=== PATIENT | male | born 1970 | race Caucasian/White ===

== ENCOUNTER 2023-07-06 12:09 | Inpatient (IN) | payer BC ==
[~2023-07-06] VITALS: Ht 165.1 cm; Wt 48.1 kg
[~2023-07-06 12:09] MED LIST: AZIT250T12 PO; CALC-870 PO; LEVA0.635 IH; MAGN400T50 MT; MYCO250C PO; PANT40TA51 MT; PRED10TA PO; SULF1TAB48 PO; TACR0.5C PO; TACR1CAP MT; VALG450T15 PO
[2023-07-06] MEDS: SODIUM CHLORIDE 0.9% 1000ML BAG (SEPSIS BOLUS) IV ONE (12:43)
[2023-07-06 13:18] LABS: HEMATOCRIT. 33.2 % (42.0-52.0); HEMOGLOBIN. 11.1 g/dL (14.0-18.0); MEAN CORPUSCULAR HEMOGLOBIN 31.8 pg (28.0-32.0); MEAN CORPUSCULAR HGB CONC 33.4 g/dL (31.0-37.0); MEAN PLATELET VOLUME 9.1 fl (7.4-10.4); PLATELET 192 x1000/uL (130-400); RED BLOOD CELL COUNT 3.49 mill/uL (4.7-6.1); RED CELL DISTRIBUTION WIDTH 18.7 % (11.6-14.6); WHITE BLOOD COUNT 3.4 x1000/uL (4.5-11.0)
[2023-07-06 13:20] LABS: DIFFERENTIAL COMMENT 1
[2023-07-06] MEDS: ALBUTEROL (0.083%) 2.5MG/3ML NEB HHN STA (13:20)
[2023-07-06] MEDS: IPRATROPIUM BROMIDE (0.02%) 0.5MG/2.5ML NEB HHN STA (13:20)
[2023-07-06 13:21] VITALS: PULSE 127; RESP 23; O2SAT 100
[2023-07-06 13:27] LABS: ALANINE AMINOTRANSFERASE 10 IU/L (10-49); ALBUMIN 3.6 g/dL (3.2-4.8); ASPARTATE AMINOTRANSFERASE 27 IU/L (<34); BILIRUBIN TOTAL 0.6 mg/dL (0.1-1.0); CARBON DIOXIDE 27 mEq/L (21-32); CHLORIDE 100 mEq/L (98-107); CREATININE 1.2 mg/dL (0.6-1.3); PROTEIN TOTAL 5.8 g/dL (6.0-8.3); SODIUM 139 mEq/L (136-145); TROPONIN I HIGH SENSITIVITY 25 ng/L (3.0-53); UREA NITROGEN BLOOD 17 mg/dL (9-23)
[2023-07-06 13:30] LABS: INR 1.2; PROTHROMBIN TIME 13.4 sec (9.6-11.0)
[2023-07-06] MEDS ORDERED: ACETAMINOPHEN 325MG TABLET PO ONE (13:30)
[2023-07-06 13:37] LABS: GLUCOSE 110 mg/dL (70-105)
[2023-07-06 13:38] LABS: POTASSIUM 2.5 mEq/L (3.5-5.1)
[2023-07-06] MEDS: ACETAMINOPHEN 325MG TABLET PO ONE (14:09)
[2023-07-06 14:15] LABS: NUCLEATED RED BLOOD CELLS 1 /100 WBC
[2023-07-06 14:16] LABS: ANISOCYTOSIS 2+; PLATELET ESTIMATE NORMAL
[2023-07-06 15:10] LABS: TROPONIN I HIGH SENSITIVITY 40 ng/L (3.0-53)
[2023-07-06] MEDS: MEROPENEM 1G/100ML 100 ML IV SCH (15:22)
[2023-07-06] MEDS: NOREPINEPHRINE 8MG/250ML PMX 250 ML IV STA (15:58)
[2023-07-06] MEDS: POTASSIUM CHLORIDE 20MEQ TABLET SR PO NR (16:14)
[2023-07-06] MEDS: VANCOMYCIN 1G PREMIX 200 ML IV SCH (19:56)
[2023-07-06 20:40] LABS: TROPONIN I HIGH SENSITIVITY 37 ng/L (3.0-53)
[2023-07-07] MEDS: METHYLPREDNISOLONE SOD SUCC 40MG/ML (ACT-O-VIAL) IV SCH (07:00)
[2023-07-07] MEDS: FAMOTIDINE 20MG/2ML VIAL IV SCH (10:15)
[2023-07-07] MEDS: IPRATROPIUM/ALBUTEROL 0.5-3(2.5)MG/3ML NEB HHN SCH (14:15)
[2023-07-07 14:16] VITALS: PULSE 82; RESP 22; O2SAT 95
[2023-07-07] MEDS: ACETYLCYSTEINE 200MG/ML 20% VIAL 4ML INH SCH (15:21)
[2023-07-07 17:28] VITALS: BP 99/75; PULSE 96; RESP 28; TEMP 97.7
[2023-07-07 20:00] VITALS: PULSE 93; RESP 22; TEMP 98.4
[2023-07-08] VITALS (7 sets, daily range): BP systolic 112–122; BP diastolic 84–96; PULSE 83–93; RESP 17–22; TEMP 96.8–98
[2023-07-08] MEDS: TACROLIMUS 0.5 MG CAPSULE PO SCH (09:41)
[2023-07-08 13:09] LABS: HEMATOCRIT. 32.7 % (42.0-52.0); HEMOGLOBIN. 10.5 g/dL (14.0-18.0); MEAN CORPUSCULAR HEMOGLOBIN 30.6 pg (28.0-32.0); MEAN CORPUSCULAR HGB CONC 32.1 g/dL (31.0-37.0); MEAN CORPUSCULAR VOLUME 95.4 fL (80.0-94.0); MEAN PLATELET VOLUME 9.9 fl (7.4-10.4); PLATELET 144 x1000/uL (130-400); RED BLOOD CELL COUNT 3.42 mill/uL (4.7-6.1); RED CELL DISTRIBUTION WIDTH 19.4 % (11.6-14.6); WHITE BLOOD COUNT 10.3 x1000/uL (4.5-11.0)
[2023-07-08 13:17] LABS: DIFFERENTIAL COMMENT 1
[2023-07-08 14:04] LABS: CALCIUM 7.9 mg/dL (8.7-10.4); CARBON DIOXIDE 22 mEq/L (21-32); CHLORIDE 105 mEq/L (98-107); CREATININE 1.4 mg/dL (0.6-1.3); GLUCOSE 207 mg/dL (70-105); PHOSPHORUS 3.2 mg/dL (2.5-4.9); POTASSIUM 3.3 mEq/L (3.5-5.1); SODIUM 136 mEq/L (136-145); UREA NITROGEN BLOOD 31 mg/dL (9-23)
[2023-07-08] MEDS: LEVOFLOXACIN 750MG PREMIX 150 ML IV NR (14:31)
[2023-07-08 15:58] LABS: ALBUMIN 3.4 g/dL (3.2-4.8); PREALBUMIN < 5.0 mg/dl (10.0-40.0)
[2023-07-08] MEDS ORDERED: MAGNESIUM 2 G PREMIX 50 ML IV NR (16:00)
[2023-07-08] MEDS: POLYVINYL ALCOHOL OPHTH DROPS 15ML BOTHEYE PRN (17:29)
[2023-07-08] MEDS: MAGNESIUM 2 G PREMIX 50 ML IV NR (17:30)
[2023-07-08] MEDS: POTASSIUM CHLORIDE 20MEQ TABLET SR PO NR (17:41)
[2023-07-08 20:40] LABS: PLATELET ESTIMATE NORMAL
[2023-07-08] MEDS ORDERED: VORICONAZOLE 50MG TABLET PO SCH (23:30)
[2023-07-09] VITALS (7 sets, daily range): BP systolic 117–127; BP diastolic 87–101; PULSE 72–87; RESP 16–28; TEMP 97.4–98.9
[2023-07-09] MEDS ORDERED: ONDANSETRON HCL 4MG TABLET PO PRN (01:15)
[2023-07-09] MEDS ORDERED: DEXT 5% IV SCH (01:30)
[2023-07-09] MEDS ORDERED: WATER IV SCH (01:30)
[2023-07-09] MEDS ORDERED: AMPHOTERICIN B LIPOSOME IV SCH (01:30)
[2023-07-09] MEDS: ONDANSETRON HCL 4MG/2ML INJ IV PRN (02:16)
[2023-07-09] MEDS: CEFEPIME 1GM/50ML 50 ML IV SCH (03:43)
[2023-07-09] MEDS: MICAFUNGIN 100 MG in SODIUM CHLORIDE 0.9% 100 ML IV SCH (03:43)
[2023-07-09 06:51] LABS: HEMATOCRIT. 29.9 % (42.0-52.0); HEMOGLOBIN. 10.1 g/dL (14.0-18.0); MEAN CORPUSCULAR HEMOGLOBIN 31.4 pg (28.0-32.0); MEAN CORPUSCULAR HGB CONC 33.6 g/dL (31.0-37.0); MEAN CORPUSCULAR VOLUME 93.3 fL (80.0-94.0); MEAN PLATELET VOLUME 10.1 fl (7.4-10.4); PLATELET 135 x1000/uL (130-400); RED BLOOD CELL COUNT 3.21 mill/uL (4.7-6.1); RED CELL DISTRIBUTION WIDTH 19.3 % (11.6-14.6); WHITE BLOOD COUNT 9.1 x1000/uL (4.5-11.0)
[2023-07-09 06:52] LABS: DIFFERENTIAL COMMENT 1
[2023-07-09 07:18] LABS: CARBON DIOXIDE 26 mEq/L (21-32); CHLORIDE 106 mEq/L (98-107); CREATININE 1.5 mg/dL (0.6-1.3); GLUCOSE 174 mg/dL (70-105); PHOSPHORUS 2.8 mg/dL (2.5-4.9); POTASSIUM 3.5 mEq/L (3.5-5.1); SODIUM 137 mEq/L (136-145); UREA NITROGEN BLOOD 44 mg/dL (9-23)
[2023-07-09] MEDS ORDERED: CEFEPIME HCL 1000MG VIAL IM SCH (09:00)
[2023-07-09] MEDS: MEROPENEM 1G/100ML 100 ML IV SCH (09:34)
[2023-07-09] MEDS: LEVOFLOXACIN 500MG PREMIX 100 ML IV SCH (11:05)
[2023-07-09 17:43] LABS: PLATELET ESTIMATE NORMAL
[2023-07-09] MEDS: DOXYCYCLINE HYCLATE 100MG CAPSULE PO SCH (18:16)
[2023-07-09] MEDS: SODIUM CHLORIDE 0.9% 1,000 ML IV SCH (19:34)
[2023-07-10] VITALS (8 sets, daily range): BP systolic 115–133; BP diastolic 90–101; PULSE 67–78; RESP 18–28; TEMP 97.6–98.4
[2023-07-11] VITALS: BP 133/93; PULSE 67; RESP 21; TEMP 97.8
[2023-07-11 04:00] VITALS: PULSE 62; RESP 13
[2023-07-11 08:00] VITALS: BP 126/96; PULSE 67; RESP 19; TEMP 97.6
[2023-07-11 12:00] VITALS: BP 121/91; PULSE 69; RESP 21; TEMP 98
[2023-07-11] MEDS: POLYETHYLENE GLYCOL 3350 (17GM) 1 DOSE PACK PO NR (13:01)
[2023-07-11 16:00] VITALS: BP 122/89; PULSE 67; RESP 21; TEMP 97.9
[2023-07-11 16:04] VITALS: BP 121/91; PULSE 69; TEMP 98; O2SAT 98
[2023-07-11] MEDS ORDERED: DOXY100T2 MT (18:27)
== END 2023-07-11 19:33 | disposition home health service (06) | DRG 871 ==
LOC: ER 12:09 → EDBEDREQSVC 19:37 → EDBEDREQTM 19:37 → EDBEDREQ 19:38 → EDBEDREQSVC 07-07 04:33 → 3WST 07-07 20:32
PROVIDERS: ADMIT Internal Medicine; ATTEND Internal Medicine
DX: A41.9 Sepsis, unspecified organism (principal); J18.9 Pneumonia, unspecified organism; J96.20 Acute and chronic respiratory failure, unspecified whether with hypoxia or hypercapnia; L89.153 Pressure ulcer of sacral region, stage 3; D84.9 Immunodeficiency, unspecified; N17.9 Acute kidney failure, unspecified; D64.9 Anemia, unspecified; E87.6 Hypokalemia; Z20.822 Contact with and (suspected) exposure to COVID-19; J45.909 Unspecified asthma, uncomplicated; K59.00 Constipation, unspecified; Z86.16 Personal history of COVID-19; Z88.0 Allergy status to penicillin; Z88.6 Allergy status to analgesic agent; Z90.49 Acquired absence of other specified parts of digestive tract; Z79.899 Other long term (current) drug therapy
CPT/HCPCS: 36415; 71045; 71250; 74018; 74177; 80048; 80053; 80197; 82040; 83735; 83880; 84100; 84134; 84145; 84484; 85025; 87426; 87804; 93005; 94640; 99291; J0289; J0692; J1956; J2185; J2248; J2405; J2920; J3370; J3475; J3490; J7030; J7050; J7060; J7507; J7608

== ENCOUNTER 2023-07-15 17:53 | Inpatient (IN) | payer BC ==
[~2023-07-15] VITALS: Ht 172.7 cm; Wt 63.1 kg
[~2023-07-15 17:53] MED LIST changes: +DOXY100T2 MT
[2023-07-15 20:11] LABS: HEMATOCRIT. 31.2 % (42.0-52.0); HEMOGLOBIN. 10.5 g/dL (14.0-18.0); MEAN CORPUSCULAR HEMOGLOBIN 31.4 pg (28.0-32.0); MEAN CORPUSCULAR HGB CONC 33.5 g/dL (31.0-37.0); MEAN CORPUSCULAR VOLUME 93.7 fL (80.0-94.0); MEAN PLATELET VOLUME 8.5 fl (7.4-10.4); PLATELET 142 x1000/uL (130-400); RED BLOOD CELL COUNT 3.33 mill/uL (4.7-6.1); RED CELL DISTRIBUTION WIDTH 18.7 % (11.6-14.6); WHITE BLOOD COUNT 11.7 x1000/uL (4.5-11.0)
[2023-07-15 20:12] LABS: DIFFERENTIAL COMMENT 1
[2023-07-15 20:29] LABS: ANISOCYTOSIS 1+; PLATELET ESTIMATE NORMAL
[2023-07-15 20:30] LABS: ALANINE AMINOTRANSFERASE 51 IU/L (10-49); ALBUMIN 3.5 g/dL (3.2-4.8); ASPARTATE AMINOTRANSFERASE 37 IU/L (<34); BILIRUBIN TOTAL 0.7 mg/dL (0.1-1.0); CALCIUM 8.3 mg/dL (8.7-10.4); CARBON DIOXIDE 37 mEq/L (21-32); CHLORIDE 104 mEq/L (98-107); CREATININE 0.7 mg/dL (0.6-1.3); GLUCOSE 124 mg/dL (70-105); PROTEIN TOTAL 5.8 g/dL (6.0-8.3); SODIUM 142 mEq/L (136-145); T4 FREE 1.07 ng/dL (0.89-1.76); THYROID STIMULATING HORMONE 17.37 uIU/mL (0.55-4.78); TROPONIN I HIGH SENSITIVITY 20 ng/L (3.0-53); UREA NITROGEN BLOOD 20 mg/dL (9-23)
[2023-07-15 20:41] LABS: POTASSIUM 2.6 mEq/L (3.5-5.1)
[2023-07-15] MEDS: SODIUM CHLORIDE 0.9% 1000ML BAG (SEPSIS BOLUS) IV ONE (21:04)
[2023-07-15] MEDS: IOHEXOL-350 100 ML BOTTLE ONE ×2 (21:36→22:45)
[2023-07-15] MEDS: MAGNESIUM 1 G PREMIX 100 ML IV ONE (23:53)
[2023-07-16] VITALS (7 sets, daily range): BP systolic 111–128; BP diastolic 62–88; PULSE 73–81; RESP 18–20; TEMP 97.5–98.7
[2023-07-16] MEDS: KCL 20MEQ/100ML PREMIX 100 ML IV ONE
[2023-07-16] MEDS: KCL 20MEQ/100ML PREMIX 100 ML IV NR (00:38)
[2023-07-16] MEDS: MAGNESIUM 1 G PREMIX 100 ML IV NR (00:39)
[2023-07-16] MEDS: LEVOFLOXACIN 750MG PREMIX 150 ML IV ONE (00:54)
[2023-07-16 01:09] LABS: CLARITY URINE CLEAR (CLEAR); COLOR URINE YELLOW (YELLOW); GLUCOSE URINE NEGATIVE (NEGATIVE); KETONES URINE NEGATIVE (NEGATIVE); LEUKOCYTE ESTERASE URINE NEGATIVE (NEGATIVE); NITRITE URINE NEGATIVE (NEGATIVE); OCCULT BLOOD URINE NEGATIVE (NEGATIVE); PH URINE 7.5 (4.5-8.0); PROTEIN URINE TRACE (NEGATIVE); SPECIFIC GRAVITY URINE 1.025 (1.005-1.030); UROBILINOGEN URINE 0.2 E.U./dL (0.2-1.0)
[2023-07-16 01:51] LABS: BACTERIA URINE NONE SEEN; RBC URINE NONE SEEN /hpf (0-2); SQUAMOUS EPITHELIAL CELL URINE NONE SEEN /lpf (RARE/1+); WBC URINE NONE SEEN /hpf (0-2)
[2023-07-16] MEDS: VANCOMYCIN 1G PREMIX 200 ML IV SCH (02:39)
[2023-07-16] MEDS ORDERED: DEXTROSE 50% WATER 50ML SYRINGE IV PRN (05:45)
[2023-07-16] MEDS ORDERED: HYDROCODONE/ACETAMINOPHEN 10/325MG TABLET PO PRN (05:45)
[2023-07-16] MEDS ORDERED: BLOOD SUGAR DIAGNOSTIC STRIP TEST SCH (07:10)
[2023-07-16] MEDS ORDERED: INSULIN LISPRO 100 UNITS/ML SUBCUT SCH (07:10)
[2023-07-16] MEDS: PREDNISONE 10MG TABLET PO SCH (08:51)
[2023-07-16] MEDS: TACROLIMUS 0.5 MG CAPSULE PO SCH (08:52)
[2023-07-16] MEDS: ACETAMINOPHEN 650MG/20.3ML UDC PO PRN (08:57)
[2023-07-16] MEDS: POTASSIUM CHLORIDE 20MEQ/PACKET PO NR (12:05)
[2023-07-16] MEDS: MAGNESIUM 4 G PREMIX 100 ML IV NR (14:29)
[2023-07-16] MEDS ORDERED: IPRATROPIUM/ALBUTEROL 0.5-3(2.5)MG/3ML NEB HHN PRN (15:30)
[2023-07-16 16:47] LABS: DIFFERENTIAL COMMENT 1; HEMATOCRIT. 31.2 % (42.0-52.0); HEMOGLOBIN. 10.1 g/dL (14.0-18.0); MEAN CORPUSCULAR HEMOGLOBIN 30.3 pg (28.0-32.0); MEAN CORPUSCULAR HGB CONC 32.4 g/dL (31.0-37.0); MEAN CORPUSCULAR VOLUME 93.5 fL (80.0-94.0); MEAN PLATELET VOLUME 9.2 fl (7.4-10.4); PLATELET 145 x1000/uL (130-400); RED BLOOD CELL COUNT 3.34 mill/uL (4.7-6.1); RED CELL DISTRIBUTION WIDTH 18.3 % (11.6-14.6); WHITE BLOOD COUNT 16.4 x1000/uL (4.5-11.0)
[2023-07-16 17:04] LABS: CALCIUM 8.3 mg/dL (8.7-10.4); CARBON DIOXIDE 33 mEq/L (21-32); CHLORIDE 103 mEq/L (98-107); GLUCOSE 133 mg/dL (70-105); POTASSIUM 3.1 mEq/L (3.5-5.1); SODIUM 141 mEq/L (136-145); UREA NITROGEN BLOOD 13 mg/dL (9-23)
[2023-07-16 17:07] LABS: CREATININE 0.4 mg/dL (0.6-1.3)
[2023-07-16 17:14] LABS: PLATELET ESTIMATE NORMAL
[2023-07-16] MEDS: MICAFUNGIN 100 MG in SODIUM CHLORIDE 0.9% 100 ML IV NR (21:52)
[2023-07-16] MEDS: MEROPENEM 1G/100ML 100 ML IV NR (21:52)
[2023-07-17] VITALS (7 sets, daily range): BP systolic 115–139; BP diastolic 84–93; PULSE 78–99; RESP 16–22; TEMP 97.1–98.9; O2SAT 98
[2023-07-17] MEDS: LEVOTHYROXINE SODIUM 50MCG TABLET PO SCH (06:48)
[2023-07-17 06:54] LABS: HEMATOCRIT. 30.3 % (42.0-52.0); MEAN CORPUSCULAR HEMOGLOBIN 30.7 pg (28.0-32.0); MEAN CORPUSCULAR HGB CONC 33.1 g/dL (31.0-37.0); MEAN CORPUSCULAR VOLUME 92.9 fL (80.0-94.0); MEAN PLATELET VOLUME 9.1 fl (7.4-10.4); PLATELET 156 x1000/uL (130-400); RED BLOOD CELL COUNT 3.27 mill/uL (4.7-6.1); RED CELL DISTRIBUTION WIDTH 18.1 % (11.6-14.6); WHITE BLOOD COUNT 16.7 x1000/uL (4.5-11.0)
[2023-07-17 06:55] LABS: DIFFERENTIAL COMMENT 1
[2023-07-17 07:33] LABS: CALCIUM 8.4 mg/dL (8.7-10.4); CARBON DIOXIDE 31 mEq/L (21-32); CHLORIDE 101 mEq/L (98-107); CREATININE 0.5 mg/dL (0.6-1.3); GLUCOSE 73 mg/dL (70-105); SODIUM 139 mEq/L (136-145); UREA NITROGEN BLOOD 16 mg/dL (9-23)
[2023-07-17 08:22] LABS: POTASSIUM 2.6 mEq/L (3.5-5.1)
[2023-07-17] MEDS: IPRATROPIUM/ALBUTEROL 0.5-3(2.5)MG/3ML NEB HHN SCH (12:37)
[2023-07-17] MEDS: POTASSIUM CHLORIDE 20MEQ TABLET SR PO SCH (13:11)
[2023-07-17] MEDS: DOCUSATE SODIUM 250MG CAPSULE PO PRN (15:23)
[2023-07-17] MEDS: KCL 20MEQ/100ML PREMIX 100 ML IV SCH (15:23)
[2023-07-17 18:11] LABS: ANISOCYTOSIS 1+; PLATELET ESTIMATE NORMAL
[2023-07-17] MEDS: MICAFUNGIN 100 MG in SODIUM CHLORIDE 0.9% 100 ML IV SCH (21:18)
[2023-07-18] VITALS: BP 128/88; PULSE 79; RESP 18; TEMP 97.1
[2023-07-18 06:20] LABS: HEMATOCRIT. 28.2 % (42.0-52.0); HEMOGLOBIN. 9.2 g/dL (14.0-18.0); MEAN CORPUSCULAR HGB CONC 32.7 g/dL (31.0-37.0); MEAN CORPUSCULAR VOLUME 94.8 fL (80.0-94.0); MEAN PLATELET VOLUME 9.1 fl (7.4-10.4); PLATELET 180 x1000/uL (130-400); RED BLOOD CELL COUNT 2.97 mill/uL (4.7-6.1); RED CELL DISTRIBUTION WIDTH 18.7 % (11.6-14.6); WHITE BLOOD COUNT 18.9 x1000/uL (4.5-11.0)
[2023-07-18 06:24] LABS: CHLORIDE 104 mEq/L (98-107); POTASSIUM 3.2 mEq/L (3.5-5.1); SODIUM 141 mEq/L (136-145)
[2023-07-18 06:25] LABS: CARBON DIOXIDE 31 mEq/L (21-32)
[2023-07-18 06:26] LABS: CALCIUM 8.8 mg/dL (8.7-10.4)
[2023-07-18 06:30] LABS: CREATININE 0.5 mg/dL (0.6-1.3)
[2023-07-18 06:31] LABS: GLUCOSE 82 mg/dL (70-105); UREA NITROGEN BLOOD 17 mg/dL (9-23)
[2023-07-18 06:38] LABS: DIFFERENTIAL COMMENT 1
[2023-07-18 08:00] VITALS: BP 113/75; PULSE 83; RESP 20; TEMP 98.2
[2023-07-18 12:00] VITALS: BP 106/74; PULSE 98; RESP 18; TEMP 98.6
[2023-07-18 16:00] VITALS: BP 113/82; PULSE 88; RESP 18; TEMP 98.2
[2023-07-18] MEDS: POTASSIUM CHLORIDE 20MEQ TABLET SR PO NR (17:38)
[2023-07-18 20:00] VITALS: BP 115/87; PULSE 82; RESP 20; TEMP 97.7
[2023-07-18 22:28] LABS: PLATELET ESTIMATE NORMAL
[2023-07-19] VITALS: BP 122/81; PULSE 77; RESP 20; TEMP 97.9
[2023-07-19 06:14] LABS: HEMATOCRIT. 26.7 % (42.0-52.0); HEMOGLOBIN. 8.8 g/dL (14.0-18.0); MEAN CORPUSCULAR HEMOGLOBIN 31.1 pg (28.0-32.0); MEAN CORPUSCULAR VOLUME 94.3 fL (80.0-94.0); MEAN PLATELET VOLUME 9.1 fl (7.4-10.4); PLATELET 192 x1000/uL (130-400); RED BLOOD CELL COUNT 2.83 mill/uL (4.7-6.1); RED CELL DISTRIBUTION WIDTH 18.5 % (11.6-14.6); WHITE BLOOD COUNT 16.4 x1000/uL (4.5-11.0)
[2023-07-19 06:29] LABS: CARBON DIOXIDE 30 mEq/L (21-32); CHLORIDE 104 mEq/L (98-107); POTASSIUM 3.5 mEq/L (3.5-5.1); SODIUM 141 mEq/L (136-145)
[2023-07-19 06:30] LABS: CALCIUM 8.9 mg/dL (8.7-10.4)
[2023-07-19 06:34] LABS: GLUCOSE 78 mg/dL (70-105)
[2023-07-19 06:35] LABS: UREA NITROGEN BLOOD 17 mg/dL (9-23)
[2023-07-19 06:38] LABS: CREATININE 0.3 mg/dL (0.6-1.3)
[2023-07-19 07:08] LABS: DIFFERENTIAL COMMENT 1
[2023-07-19 08:00] VITALS: BP 120/83; PULSE 80; RESP 20; TEMP 98.5
[2023-07-19 12:00] VITALS: BP 104/77; PULSE 91; RESP 20; TEMP 98.1
[2023-07-19 14:14] LABS: ANISOCYTOSIS 1+; PLATELET ESTIMATE NORMAL
[2023-07-19 16:00] VITALS: BP 117/80; PULSE 88; RESP 20; TEMP 98.1
[2023-07-19 20:00] VITALS: BP 111/79; PULSE 98; RESP 19; TEMP 97.5
[2023-07-20 08:00] VITALS: BP 115/78; PULSE 76; RESP 20; TEMP 97.8
[2023-07-20 12:00] VITALS: BP 113/80; PULSE 92; RESP 20; TEMP 98.1
[2023-07-20 16:00] VITALS: BP 120/77; PULSE 95; RESP 20; TEMP 97.7
[2023-07-20 20:00] VITALS: BP 103/75; PULSE 87; PULSE 92; RESP 18; TEMP 98.8; O2SAT 94
[2023-07-21] VITALS (7 sets, daily range): BP systolic 110–134; BP diastolic 72–88; PULSE 74–89; RESP 16–20; TEMP 96.6–97.9; O2SAT 95
[2023-07-21 10:30] LABS: BASOPHILS % 1.1 % (0.0-2.0); DIFFERENTIAL COMMENT 0; HEMATOCRIT. 30.2 % (42.0-52.0); LYMPHOCYTES % 8.4 % (20.0-50.0); MEAN CORPUSCULAR HEMOGLOBIN 31.6 pg (28.0-32.0); MEAN CORPUSCULAR HGB CONC 33.3 g/dL (31.0-37.0); MEAN CORPUSCULAR VOLUME 95.1 fL (80.0-94.0); MEAN PLATELET VOLUME 8.3 fl (7.4-10.4); MONOCYTES % 8.3 % (2.0-8.0); NEUTROPHILS % 81.2 % (40.0-76.0); PLATELET 284 x1000/uL (130-400); RED BLOOD CELL COUNT 3.18 mill/uL (4.7-6.1); WHITE BLOOD COUNT 10.6 x1000/uL (4.5-11.0)
[2023-07-21 10:51] LABS: CHLORIDE 104 mEq/L (98-107); SODIUM 142 mEq/L (136-145)
[2023-07-21 10:52] LABS: CALCIUM 8.5 mg/dL (8.7-10.4); CARBON DIOXIDE 32 mEq/L (21-32)
[2023-07-21 10:57] LABS: CREATININE 0.6 mg/dL (0.6-1.3); GLUCOSE 99 mg/dL (70-105)
[2023-07-21 10:58] LABS: UREA NITROGEN BLOOD 14 mg/dL (9-23)
[2023-07-21 10:59] LABS: ALANINE AMINOTRANSFERASE 28 IU/L (10-49); ALBUMIN 3.6 g/dL (3.2-4.8); ASPARTATE AMINOTRANSFERASE 40 IU/L (<34); BILIRUBIN TOTAL 0.6 mg/dL (0.1-1.0); PHOSPHORUS 3.1 mg/dL (2.5-4.9)
[2023-07-21 11:00] LABS: PROTEIN TOTAL 5.7 g/dL (6.0-8.3)
[2023-07-21] MEDS: POTASSIUM CHLORIDE 20MEQ TABLET SR PO NR (20:17)
[2023-07-22] VITALS: BP 120/81; PULSE 72; RESP 18; TEMP 97.8
[2023-07-22 06:32] LABS: BASOPHILS % 1.4 % (0.0-2.0); DIFFERENTIAL COMMENT 0; EOSINOPHILS % 0.7 % (0.0-5.0); LYMPHOCYTES % 8.7 % (20.0-50.0); MEAN CORPUSCULAR HEMOGLOBIN 31.3 pg (28.0-32.0); MEAN CORPUSCULAR HGB CONC 33.7 g/dL (31.0-37.0); MEAN CORPUSCULAR VOLUME 92.8 fL (80.0-94.0); MEAN PLATELET VOLUME 8.6 fl (7.4-10.4); MONOCYTES % 11.3 % (2.0-8.0); NEUTROPHILS % 77.9 % (40.0-76.0); PLATELET 218 x1000/uL (130-400); RED BLOOD CELL COUNT 2.48 mill/uL (4.7-6.1); RED CELL DISTRIBUTION WIDTH 18.5 % (11.6-14.6); WHITE BLOOD COUNT 7.5 x1000/uL (4.5-11.0)
[2023-07-22 06:35] VITALS: BP 121/80; PULSE 85; RESP 18; TEMP 97.6
[2023-07-22 07:21] LABS: HEMOGLOBIN. 7.8 g/dL (14.0-18.0)
[2023-07-22 07:36] LABS: CARBON DIOXIDE 29 mEq/L (21-32); CHLORIDE 106 mEq/L (98-107); POTASSIUM 3.4 mEq/L (3.5-5.1); SODIUM 143 mEq/L (136-145)
[2023-07-22 07:37] LABS: CALCIUM 7.9 mg/dL (8.7-10.4)
[2023-07-22 07:42] LABS: CREATININE 0.5 mg/dL (0.6-1.3); GLUCOSE 82 mg/dL (70-105); UREA NITROGEN BLOOD 13 mg/dL (9-23)
[2023-07-22 08:00] VITALS: BP 114/76; PULSE 77; RESP 18; TEMP 97.7
[2023-07-22 12:00] VITALS: BP 108/75; PULSE 75; RESP 18; TEMP 97.9
[2023-07-22] MEDS ORDERED: POSACONAZOLE PO SCH (13:15)
[2023-07-22 15:06] VITALS: BP 114/76; PULSE 77; TEMP 97.7; O2SAT 96
[2023-07-22 16:00] VITALS: BP 110/80; PULSE 88; RESP 18; TEMP 97.9
== END 2023-07-22 18:36 | disposition home or self-care (01) | DRG 199 ==
LOC: ER 17:53 → 8WST 07-16 04:31
PROVIDERS: ADMIT Internal Medicine; ATTEND Internal Medicine
PROC: 4A00X4Z Measurement of Central Nervous Electrical Activity, External Approach (ICD-10-PCS; principal; 2023-07-16)
DX: J98.2 Interstitial emphysema (principal); J96.21 Acute and chronic respiratory failure with hypoxia; Z94.2 Lung transplant status; D84.9 Immunodeficiency, unspecified; M54.2 Cervicalgia; R13.10 Dysphagia, unspecified; J40 Bronchitis, not specified as acute or chronic; E87.6 Hypokalemia; E83.42 Hypomagnesemia; Z88.6 Allergy status to analgesic agent; Z88.0 Allergy status to penicillin; Z86.16 Personal history of COVID-19; X58.XXXA Exposure to other specified factors, initial encounter; Y93.89 Activity, other specified; Y92.89 Other specified places as the place of occurrence of the external cause; Y99.8 Other external cause status
CPT/HCPCS: 36415; 70491; 71045; 71250; 80048; 80053; 81003; 83605; 83735; 84100; 84145; 84439; 84443; 84481; 84484; 85025; 87070; 87430; 93005; 94640; 99285; J1956; J2185; J2248; J3370; J3475; J3480; J7030; J7050; J7507; J7512; Q9967